=== PATIENT | male | born 1980 | race Caucasian/White ===

== ENCOUNTER 2020-01-27 02:26 | Inpatient (IN) | payer SELFPAY ==
[~2020-01-27] VITALS: Ht 160 cm; Wt 64.4 kg
[2020-01-27] MEDS ORDERED: LORAZEPAM 2MG/ML CPJ IV ONE (08:00)
[2020-01-27] MEDS ORDERED: SODIUM CHLORIDE 0.9% 1,000 ML IV ONE (08:00)
[2020-01-27] MEDS ORDERED: FOLIC ACID 1 MG, THIAMINE HCL 100 MG, MVI, ADULT NO.1 10 ML in DEXTROSE 5% WATER 1,000 ML IV ONE ×4 (08:00)
[2020-01-27 08:51] LABS: BASOPHILS % 0.6 % (0.0-2.0); EOSINOPHILS % 0.3 % (0.0-5.0); HEMATOCRIT. 45.6 % (42.0-52.0); HEMOGLOBIN. 15.7 g/dL (14.0-18.0); LYMPHOCYTES % 17.7 % (20.0-50.0); MEAN CORPUSCULAR HEMOGLOBIN 30.9 pg (28.0-32.0); MEAN CORPUSCULAR VOLUME 89.6 fL (80.0-94.0); MEAN PLATELET VOLUME 8.3 fl (7.4-10.4); MONOCYTES % 7.1 % (2.0-8.0); NEUTROPHILS % 74.3 % (40.0-76.0); PLATELET 210 x1000/uL (130-400); RED BLOOD CELL COUNT 5.09 mill/uL (4.7-6.1); RED CELL DISTRIBUTION WIDTH 14.6 % (11.6-14.6)
[2020-01-27 09:13] LABS: CHLORIDE 105 mEq/L (98-107)
[2020-01-27] MEDS ORDERED: ASPIRIN 325MG EC TABLET PO ONE (10:30)
[2020-01-27 13:18] VITALS: BP 132/76
[2020-01-27] MEDS ORDERED: HYDR-459 PO (15:13)
[2020-01-27] MEDS ORDERED: INFLUENZA VACCINE 05/PF 0.5 ML VIAL IM ONE (15:30)
[2020-01-27 16:08] VITALS: BP 124/80
[2020-01-27] MEDS ORDERED: ONDANSETRON HCL 4MG/2ML INJ IV PRN (17:00)
[2020-01-27 18:00] VITALS: BP 124/80
[2020-01-27] MEDS ORDERED: ENOXAPARIN 40MG/0.4ML SYR SUBCUT SCH (18:00)
[2020-01-27] MEDS: PANTOPRAZOLE 40MG DR TABLET PO SCH (19:24)
[2020-01-27 20:00] VITALS: BP 120/77
[2020-01-27] MEDS ORDERED: ATORVASTATIN CALCIUM 40MG TABLET PO SCH (21:00)
[2020-01-28] VITALS: BP 120/79
[2020-01-28] MEDS ORDERED: FOLIC ACID 1 MG, THIAMINE HCL 100 MG, MVI, ADULT NO.1 10 ML in DEXTROSE 5% WATER 1,000 ML IV ONE ×4
[2020-01-28 04:00] VITALS: BP 130/84
[2020-01-28] MEDS: CHLORDIAZEPOXIDE 25MG CAPSULE PO SCH ×2 (06:01→14:03)
[2020-01-28 08:10] VITALS: BP 119/78
[2020-01-28] MEDS: PANTOPRAZOLE 40MG DR TABLET PO SCH (09:55)
[2020-01-28 12:06] VITALS: BP 110/64
[2020-01-28] MEDS ORDERED: L25 PO (13:34)
[2020-01-28] MEDS ORDERED: PANT40TA4 PO (13:34)
[2020-01-28] MEDS ORDERED: FOLI-43 MT (13:34)
[2020-01-28 15:07] VITALS: BP 110/64
[2020-01-28 16:12] LABS: BASOPHILS % 0.7 % (0.0-2.0); EOSINOPHILS % 2.7 % (0.0-5.0); HEMATOCRIT. 45.3 % (42.0-52.0); HEMOGLOBIN. 15.6 g/dL (14.0-18.0); LYMPHOCYTES % 29.6 % (20.0-50.0); MEAN CORPUSCULAR VOLUME 89.9 fL (80.0-94.0); MEAN PLATELET VOLUME 8.2 fl (7.4-10.4); MONOCYTES % 8.6 % (2.0-8.0); NEUTROPHILS % 58.4 % (40.0-76.0); PLATELET 192 x1000/uL (130-400); RED BLOOD CELL COUNT 5.04 mill/uL (4.7-6.1); RED CELL DISTRIBUTION WIDTH 14.6 % (11.6-14.6)
[2020-01-28 16:29] LABS: CHLORIDE 106 mEq/L (98-107)
[2020-01-29] MEDS ORDERED: FAMOTIDINE 20MG TABLET PO SCH (09:00)
== END 2020-01-28 16:09 | disposition home or self-care (01) | DRG 203 ==
LOC: ER 02:26 → 6WST 11:37 → ENRESERV 12:10
PROVIDERS: ADMIT Family Medicine; ATTEND Family Medicine
DX: R07.89 Other chest pain (principal); F10.10 Alcohol abuse, uncomplicated; F17.200 Nicotine dependence, unspecified, uncomplicated; F14.10 Cocaine abuse, uncomplicated; Z79.899 Other long term (current) drug therapy
CPT/HCPCS: 36415; 71045; 80053; 83880; 84484; 85025; 93005; 93306; 99285; J1650; J2060; J3411; J3490; J7030; J7070